=== PATIENT | male | born 1960 | race Two or more races ===

== ENCOUNTER 2022-05-24 13:04 | Emergency (ER) | payer OTHER ==
[~2022-05-24] VITALS: Ht 182.9 cm; Wt 110.0 kg
[2022-05-24 13:41] VITALS: BP 171/69
[2022-05-24] MEDS ORDERED: METF-370 PO (16:42)
== END 2022-05-24 17:22 | disposition home or self-care (01) ==
LOC: ER 13:04
DX: E11.9 Type 2 diabetes mellitus without complications (principal); Z76.0 Encounter for issue of repeat prescription; Z79.899 Other long term (current) drug therapy; Z88.8 Allergy status to other drugs, medicaments and biological substances
CPT/HCPCS: 82962

== ENCOUNTER 2022-06-21 13:06 | Emergency (ER) | payer OTHER ==
[~2022-06-21 13:06] MED LIST: METF-370 PO
[2022-06-21] MEDS ORDERED: AMLO-496 PO (15:07)
[2022-06-21] MEDS ORDERED: METF-371 PO (15:07)
[2022-06-21 15:25] VITALS: BP 158/94
== END 2022-06-21 15:25 | disposition home or self-care (01) ==
LOC: ER 13:06
DX: I89.0 Lymphedema, not elsewhere classified (principal); I10 Essential (primary) hypertension; E11.9 Type 2 diabetes mellitus without complications; E78.5 Hyperlipidemia, unspecified; Z76.0 Encounter for issue of repeat prescription